=== PATIENT | female | born 1935 ===

== ENCOUNTER 2022-06-05 19:00 | Emergency (ER) | payer MEDICARE, SELFPAY ==
[2022-06-05] VITALS (14 sets, daily range): BP systolic 119–161; BP diastolic 65–90; PULSE 75–88; RESP 15–23; TEMP 36.4; O2SAT 90–98
--- NOTE | 2022-06-05 19:14 | DI.CT.S_ITS ---
PROCEDURE: CT HEAD/BRAIN WO CON INDICATIONS: fall TECHNIQUE: Noncontrast 4.5 mm thick angled axial sections acquired from the foramen magnum to the vertex, with coronal and sagittal reformats. For radiation dose reduction, the following was used: automated exposure control, adjustment of mA and/or kV according to patient size. COMPARISON: [facility], CT, CT CERVICAL SPINE WO CON, 06/05/2022, 19:19. FINDINGS: Image quality: Excellent. CSF spaces: Basal cisterns are patent. No extra-axial fluid collections. The ventricles are symmetric in size and shape. Brain: No intracranial bleeds or masses. There is cerebral volume loss for age, with resultant ventricular and sulcal prominence. There are periventricular and deep white matter chronic small vessel ischemic changes. There is intracranial internal carotid artery atherosclerosis. Skull and face: Calvarium and visualized facial bones appear intact, without suspicious lesions. Sinuses: Visualized sinuses and mastoids are clear. IMPRESSION: 1. No acute intracranial process. 2. Moderate atrophy and chronic microvascular ischemic changes. Dictated by: Bryanna Freire M.D. on 06/05/2022 at 19:40 Approved by: Bryanna Freire M.D. on 06/05/2022 at 19:40
--- NOTE | 2022-06-05 19:14 | DI.CT.S_ITS ---
PROCEDURE: CT CERVICAL SPINE WO CON INDICATIONS: fall TECHNIQUE: Noncontrast 3 mm thick sections acquired from the skull base to the T4 level. Sagittal and coronal reformats were then constructed. For radiation dose reduction, the following was used: automated exposure control, adjustment of mA and/or kV according to patient size. COMPARISON: [facility], CT, CT HEAD/BRAIN WO CON, 06/05/2022, 19:19. FINDINGS: Image quality: Excellent. Bones: No fractures or dislocations. Visualized superior ribs are intact. Multilevel degenerative changes are present. Soft tissues: Prevertebral soft tissues are normal in thickness. No paravertebral hematomas. No apical pneumothoraces. IMPRESSION: Multilevel degenerative changes without visualized fracture. Dictated by: Bryanna Freire M.D. on 06/05/2022 at 19:51 Approved by: Bryanna Freire M.D. on 06/05/2022 at 19:52
--- NOTE | 2022-06-05 19:14 | DI.RAD.S_ITS ---
PROCEDURE: XR CHEST 1V INDICATIONS: fall TECHNIQUE: One view of the chest was acquired. COMPARISON: None. FINDINGS: Surgical changes and devices: None. Lungs and pleura: Lungs are clear. No pleural effusions or pneumothorax. Mediastinum: Mediastinal contours appear normal. Heart size is mildly enlarged. Bones and chest wall: No suspicious bony lesions. Overlying soft tissues appear unremarkable. IMPRESSION: No acute pulmonary process. Dictated by: Bryanna Freire M.D. on 06/05/2022 at 19:59 Approved by: Bryanna Freire M.D. on 06/05/2022 at 19:59
--- NOTE | 2022-06-05 19:22 | DI.RAD.S_ITS ---
PROCEDURE: XR HUMERUS LT 2V INDICATIONS: fall TECHNIQUE: 2 views of the humerus were acquired. COMPARISON: None. FINDINGS: Bones: No fractures or dislocations. No suspicious bony lesions. Soft tissues: No suspicious soft tissue calcifications. IMPRESSION: No trauma found. 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 Dictated by: David Albert M.D. on 06/05/2022 at 20:03 Approved by: David Alebrt M.D. on 06/05/2022 at 20:04
--- NOTE | 2022-06-05 19:22 | DI.RAD.S_ITS ---
PROCEDURE: XR ELBOW LT MIN 3V INDICATIONS: fall TECHNIQUE: 3 views of the elbow were acquired. COMPARISON: [facility], CR, XR HUMERUS LT 2V, 06/05/2022, 19:22. FINDINGS: Bones: No definite fractures or dislocations. No suspicious bony lesions. There is slight irregularity at the ulnar base of radial head, seen on one view only. Soft tissues: Small elbow joint effusion. No suspicious soft tissue calcifications. IMPRESSION: Slight anterior joint effusion, slight irregularity at the ulna are border of the radial head base, conceivably a manifestation of a nondisplaced radial head fracture. Depending on the clinical status follow-up by delayed plain films may be warranted. Dictated by: David Albert M.D. on 06/05/2022 at 20:04 Approved by: David Albert M.D. on 06/05/2022 at 20:06
[2022-06-05 19:37] LABS: INR 1.2 (0.9-1.3); Prothrombin Time 13.6 SECONDS (10.1-12.7)
[2022-06-05 19:38] LABS: Add Manual Diff / Slide Review NO; Basophils Absolute Auto 0 /uL (0-100); Basophils Percent Auto 0.3 % (0-2); Eosinophils Absolute Auto 100 /uL (0-450); Hemoglobin 12.4 g/dL (12.0-16.0); Lymphocytes Absolute Auto 1200 /uL (1100-4500); Lymphocytes Percent Auto 12.3 % (25-40); Mean Corpuscular HGB Conc 32.6 % (30-36); Mean Corpuscular Hemoglobin 31.1 PG (26-34); Mean Corpuscular Volume 95.4 fL (80-100); Monocytes Absolute Auto 800 /uL (0-900); Monocytes Percent Auto 8.5 % (3-14); Neutrophils Absolute Auto 7500 /uL (1500-7000); Neutrophils Percent Auto 77.9 % (50-75); Platelet Count 286 X10^3/uL (150-400); Red Blood Cell Count 3.98 X10^6/uL (4.0-5.2); White Blood Cell Count 9.6 X10^3/uL (4.5-11.0)
[2022-06-05 19:39] LABS: PTT Partial Thromboplastin Tim 29 SECONDS (26-36)
[2022-06-05 19:41] LABS: Alanine Aminotransferase 20 IU/L (<35); Albumin 4.1 g/dL (3.5-5.0); Albumin Globulin Ratio 1.2 (1.0-2.8); Alkaline Phosphatase 147 U/L (38-126); Aspartate Aminotransferase 20 IU/L (14-36); BUN Creatinine Ratio 18.3 (6-22); Bilirubin Total 0.7 mg/dL (0.2-1.3); Blood Urea Nitrogen 17 mg/dL (7-17); Calcium 9.3 mg/dL (8.4-10.2); Carbon Dioxide 27 mmol/L (22-32); Chloride 104 mmol/L (98-107); Creatine Kinase 37 U/L (30-135); Estimated Glomerular Filt Rate 59 mL/min (>60); Globulin 3.5 g/dL (1.7-4.1); Glucose 136 mg/dL (80-110); HEMOLYSIS < 15 (0-50); Lipase 106 U/L (23-300); Potassium 3.9 mmol/L (3.4-5.1); Sodium 139 mmol/L (137-145); Total Protein 7.6 g/dL (6.3-8.2)
--- NOTE | 2022-06-05 19:48 | ED_ITS ---
HPI - Fall General Chief Complaint: Fall Stated Complaint: glf Time Seen by Provider: 06/05/22 19:04 Source: EMS Mode of arrival: EMS History of Present Illness HPI Narrative: Patient is a 87-year-old female with some mild dementia history of hypertension along atrial fibrillation not on anticoagulation or rate control presenting today after a ground level fall. She had her son are visiting here from [place], presenting today after she tripped and fell. She was getting up to get echo when she stubbed her right toe. No head injury or loss of consciousness. Is complaining of some left arm pain. Was previously doing well. She is noted to be in AFib with a rate control all. She denies any hip pain chest pain abdominal pain nausea or vomiting. Related Data Allergies Allergy/AdvReac Type Severity Reaction Status Date / Time Penicillins Allergy Verified 06/05/22 19:36 Review of Systems Review of Systems Narrative: GENERAL: Denies chills, fatigue, malaise, fever, sweats, travel HEENT: Denies sinus pain, ear pain, sore throat, difficulty swallowing, neck pain RESPIRATORY: Denies dyspnea, cough, wheezing, hemoptysis, sputum. CARDIOVASCULAR: Denies chest pain, palpitations, orthopnea, edema GASTROINTESTINAL: Denies nausea, vomiting, abdominal pain, diarrhea, cons tipation, melena. : Denies dysuria, frequency, incontinence, hematuria, urinary retention, flank pain. MUSCULOSKELETAL: See HPI SKIN: No rash, no erythema, no pruritus NEUROLOGIC: Denies weakness, dizziness, headache, numbness, change in speech, confusion PSYCHIATRIC: No concerning psychosocial issues. 12 point review of systems is negative except for those stated above and HPI Patient History Social History Smoking Status: Former smoker Smoking Status: Former smoker tobacco type: cigarettes alcohol intake frequency: holidays/special occasions only Exam Initial Vital Signs Initial Vital Signs: Vital Signs Pulse Rate 86 06/05/22 19:07 Respiratory Rate 17 06/05/22 19:07 Pulse Oximetry 94 06/05/22 19:07 GENERAL: Alert pleasant mildly confused 87 year old female HEENT: Head atraumatic,EOMI, pupils reactive, face symmetric, moist mucous membranes CARDIOVASCULAR: Regular rate and rhythm without murmurs, rubs or gallops. RESPIRATORY: Breath sounds equal bilaterally, no wheezes rales or rhonchi. ABDOMEN: Soft, nontender. Normoactive bowel sounds all 4 quadrants. No guarding or rebound. EXTREMITIES: Normal range of motion, no clubbing or edema. Neurovascularly intact Left arm in cardboard splint peripheral pulses intact no gross bony deformity no step-off no acute shoulder abnormality NEUROLOGICAL: Alert and oriented x4.Normal gait and speech. Cafeteria Aide strength equal bilaterally SKIN: Warm, dry, no laceration, no petechiae, no rashes or lesions. Course Orders Ordered: ED Orders 06/05/22 20:36 Covid-19 + FLU A/B + RSV - PCR Stat Discontinued Medications Acetaminophen (Acetaminophen 325 Mg Tablet) 975 mg PO NOW ONE Stop: 06/05/22 21:40 Last Admin: 06/05/22 22:06 Dose: 975 mg Documented By: RYAN Vital Signs Vital signs: Vital Signs - 8 hr 06/05/22 21:15 06/05/22 21:15 06/05/22 21:30 Pulse Rate 84 Respiratory Rate 21 Blood Pressure 159/90 H 138/81 Pulse Oximetry 98 Oxygen Delivery Method Room Air 06/05/22 21:30 06/05/22 21:45 06/05/22 21:45 Pulse Rate 75 75 Respiratory Rate 19 Blood Pressure 124/76 Pulse Oximetry 98 94 Oxygen Delivery Method Room Air 06/05/22 22:00 06/05/22 22:00 Pulse Rate 80 Respiratory Rate 17 Blood Pressure 134/72 Pulse Oximetry 95 Oxygen Delivery Method Room Air MDM - Fall Lab Data Result diagrams: 06/05/22 19:11 06/05/22 19:11 Labs: Lab Results 06/05/22 06/05/22 06/05/22 Range/Units 19:11 19:11 19:11 WBC 9.6 (4.5-11.0) X10^3/uL RBC 3.98 L (4.0-5.2) X10^6/uL Hgb 12.4 (12.0-16.0) g/dL Hct 38.0 (36-46) % MCV 95.4 (80-100) fL MCH 31.1 (26-34) PG MCHC 32.6 (30-36) % RDW 14.0 (11.6-14.8) % Plt Count 286 (150-400) X10^3/uL Neut % (Auto) 77.9 H (50-75) % Lymph % (Auto) 12.3 L (25-40) % Henderson % (Auto) 8.5 (3-14) % Eos % (Auto) 1.0 L (2-4) % Baso % (Auto) 0.3 (0-2) % Neut # (Auto) 7500 H (8855-6152) /uL Lymph # (Auto) 1200 (6127-1621) /uL Henderson # (Auto) 800 (0-900) /uL Eos # (Auto) 100 (0-450) /uL Baso # (Auto) 0 (0-100) /uL PT (10.1-12.7) SECONDS INR (0.9-1.3) APTT (26-36) SECONDS Sodium 139 (137-145) mmol/L Potassium 3.9 (3.4-5.1) mmol/L Chloride 104 (98-107) mmol/L Carbon Dioxide 27 (22-32) mmol/L BUN 17 (7-17) mg/dL Creatinine 0.93 (0.52-1.04) mg/dL Estimated GFR 59 L (>60) mL/min BUN/Creatinine Ratio 18.3 (6-22) Glucose 136 H (80-110) mg/dL Calcium 9.3 (8.4-10.2) mg/dL Total Bilirubin 0.7 (0.2-1.3) mg/dL AST 20 (14-36) IU/L ALT 20 (<35) IU/L Alkaline Phosphatase 147 H (38-126) U/L Total Creatine Kinase 37 (30-135) U/L CK-MB (CK-2) TNP CK-MB (CK-2) Rel Index TNP Troponin I < 0.012 (0.01-0.034) ng/mL Total Protein 7.6 (6.3-8.2) g/dL Albumin 4.1 (3.5-5.0) g/dL Globulin 3.5 (1.7-4.1) g/dL Albumin/Globulin Ratio 1.2 (1.0-2.8) Lipase 106 (23-300) U/L Procalcitonin 0.06 (<0.5) ng/mL SARS-CoV-2 (PCR) (Negative) Influenza A (RT-PCR) (NEGATIVE) Influenza B (RT-PCR) (NEGATIVE) RSV (PCR) (Negative) 06/05/22 06/05/22 Range/Units 19:11 20:36 WBC (4.5-11.0) X10^3/uL RBC (4.0-5.2) X10^6/uL Hgb (12.0-16.0) g/dL Hct (36-46) % MCV (80-100) fL MCH (26-34) PG MCHC (30-36) % RDW (11.6-14.8) % Plt Count (150-400) X10^3/uL Neut % (Auto) (50-75) % Lymph % (Auto) (25-40) % Henderson % (Auto) (3-14) % Eos % (Auto) (2-4) % Baso % (Auto) (0-2) % Neut # (Auto) (8054-6267) /uL Lymph # (Auto) (2673-8858) /uL Henderson # (Auto) (0-900) /uL Eos # (Auto) (0-450) /uL Baso # (Auto) (0-100) /uL PT 13.6 H (10.1-12.7) SECONDS INR 1.2 (0.9-1.3) APTT 29 (26-36) SECONDS Sodium (137-145) mmol/L Potassium (3.4-5.1) mmol/L Chloride (98-107) mmol/L Carbon Dioxide (22-32) mmol/L BUN (7-17) mg/dL Creatinine (0.52-1.04) mg/dL Estimated GFR (>60) mL/min BUN/Creatinine Ratio (6-22) Glucose (80-110) mg/dL Calcium (8.4-10.2) mg/dL Total Bilirubin (0.2-1.3) mg/dL AST (14-36) IU/L ALT (<35) IU/L Alkaline Phosphatase (38-126) U/L Total Creatine Kinase (30-135) U/L CK-MB (CK-2) CK-MB (CK-2) Rel Index Troponin I (0.01-0.034) ng/mL Total Protein (6.3-8.2) g/dL Albumin (3.5-5.0) g/dL Globulin (1.7-4.1) g/dL Albumin/Globulin Ratio (1.0-2.8) Lipase (23-300) U/L Procalcitonin (<0.5) ng/mL SARS-CoV-2 (PCR) Negative (Negative) Influenza A (RT-PCR) Flu a negative (NEGATIVE) Influenza B (RT-PCR) Flu b negative (NEGATIVE) RSV (PCR) Negative (Negative) Imaging Data CT scan - head: Radiologist's Impression: CT Scan Report Signed Patient: Suzanne Raman MR#: [id number] : 1935 Acct:[id number] Age/Sex: 87 / F Date of Service: 06/05/22 Loc: ED Accession Number: [id number] ?? Procedure: CT head/brain wo con Ordering Provider: Stephanie Loyola D.O. PROCEDURE:? CT HEAD/BRAIN WO CON ? INDICATIONS:? fall ? TECHNIQUE:? Noncontrast 4.5 mm thick angled axial sections acquired from the foramen magnum to the vertex, with coronal and sagittal reformats.? For radiation dose reduction, the following was used:? automated exposure control, adjustment of mA and/or kV according to patient size.? ? COMPARISON:? [facility], CT, CT CERVICAL SPINE WO CON, 06/05/2022, 19:19. ? FINDINGS:? Image quality:? Excellent.? ? CSF spaces:? Basal cisterns are patent.? No extra-axial fluid collections.? The ventricles are symmetric in size and shape.? ? Brain:? No intracranial bleeds or masses.? There is cerebral volume loss for age, with resultant ventricular and sulcal prominence.? There are periventricular and deep white matter chronic small vessel ischemic changes.? There is intracranial internal carotid artery atherosclerosis.? ? Skull and face:? Calvarium and visualized facial bones appear intact, without melchor spicious lesions.? ? Sinuses:? Visualized sinuses and mastoids are clear.? ? IMPRESSION:? ? 1. No acute intracranial process. ? 2. Moderate atrophy and chronic microvascular ischemic changes. ? ? ? Dictated by: Bryanna Freire M.D. on 06/05/2022 at 19:40 ? ? CT - cervical spine: Radiologist's Impression: CT Scan Report Signed Patient: Suzanne Raman MR#: [id number] : 1935 Acct:[id number] Age/Sex: 87 / F Date of Service: 06/05/22 Loc: ED Accession Number: [id number] ?? Procedure: CT cervical spine wo con Ordering Provider: Stephanie Loyola D.O. PROCEDURE:? CT CERVICAL SPINE WO CON ? INDICATIONS:? fall ? TECHNIQUE:? Noncontrast 3 mm thick sections acquired from the skull base to the T4 level.? Sagittal and coronal reformats were then constructed.? For radiation dose reduction, the following was used:? automated exposure control, adjustment of mA and/or kV according to patient size.? ? COMPARISON:? [facility], CT, CT HEAD/BRAIN WO CON, 06/05/2022, 19:19. ? FINDINGS:? Image quality:? Excellent.? ? Bones:? No fractures or dislocations.? Visualized superior ribs are intact.? Multilevel degenerative changes are present.? ? Soft tissues:? Prevertebral soft tissues are normal in thickness.? No paravertebral hematomas.? No apical pneumothoraces.? ? ? IMPRESSION:? Multilevel degenerative changes without visualized fracture. ? Dictated by: Bryanna Freire M.D. on 06/05/2022 at 19:51 ? ? Extremity x-ray #1: Radiologist's Impression: Signed Patient: Suzanne Raman MR#: [id number] : 1935 Acct:[id number] Age/Sex: 87 / F Date of Service: 06/05/22 Loc: ED Accession Number: [id number] ?? Procedure: XR humerus LT 2V Ordering Provider: Stephanie Loyola D.O. PROCEDURE:? XR HUMERUS LT 2V ? INDICATIONS:? fall ? TECHNIQUE:? 2 views of the humerus were acquired.? ? COMPARISON:? None. ? FINDINGS:? ? Bones:? No fractures or dislocations.? No suspicious bony lesions.? ? Soft tissues:? No suspicious soft tissue calcifications.? ? IMPRESSION:? No trauma found.? 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 ? ? Dictated by: David Albert M.D. on 06/05/2022 at 20:03 ? ? Extremity x-ray #2: Radiologist's Impression: Suzanne Raman MR#: [id number] : 1935 Acct:[id number] Age/Sex: 87 / F Date of Service: 06/05/22 Loc: ED Accession Number: [id number] ?? Procedure: XR elbow LT min 3V Ordering Provider: Stephanie Loyola D.O. PROCEDURE:? XR ELBOW LT MIN 3V ? INDICATIONS:? fall ? TECHNIQUE:? 3 views of the elbow were acquired.? ? COMPARISON:? [facility], CR, XR HUMERUS LT 2V, 06/05/2022, 19:22. ? FINDINGS:? ? Bones:? No definite fractures or dislocations.? No suspicious bony lesions.? There is slight irregularity at the ulnar base of radial head, seen on one view only. ? Soft tissues:? Small elbow joint effusion.? No suspicious soft tissue calcifications.? ? ? IMPRESSION:? Slight anterior joint effusion, slight irregularity at the ulna are border of the radial head base, conceivably a manifestation of a nondisplaced radial head fracture.? Depending on the clinical status follow-up by delayed plain films may be warranted. ? ? Dictated by: David Albert M.D. on 06/05/2022 at 20:04 ? ? Approved by: David Albert M.D. on 06/05/2022 at 20:06 ? Chest x-ray: Radiologist's Impression: Signed Patient: Suzanne Raman MR#: [id number] : 1935 Acct:[id number] Age/Sex: 87 / F Date of Service: 06/05/22 Loc: ED Accession Number: [id number] ?? Procedure: XR chest 1V Ordering Provider: Stephanie Loyola D.O. PROCEDURE:? XR CHEST 1V ? INDICATIONS:? fall ? TECHNIQUE:? One view of the chest was acquired.? ? COMPARISON:? None. ? FINDINGS:? ? Surgical changes and devices:? None.? ? Lungs and pleura:? Lungs are clear.? No pleural effusions or pneumothorax.? ? Mediastinum:? Mediastinal contours appear normal.? Heart size is mildly enlarged. ? Bones and chest wall:? No suspicious bony lesions.? Overlying soft tissues appear unremarkable.? ? IMPRESSION:? No acute pulmonary process. ? ? Dictated by: Bryanna Freire M.D. on 06/05/2022 at 19:59 ? ? ECG Data Interpretation: Atrial fibrillation rate [address] changes priors to compare MDM Narrative Medical decision making narrative: Son at bedside more reliable historian says they are visiting. She has had AFib ongoing since at least 2020 not on any anticoagulation. Left toe has a mild bruise but moving it we all agree no x-ray at this time. Left elbow x-ray does suggest possible radial head fracture she can flex extend supinate and pronate with minimal pain she has mild pain in her distal humerus which is not fractured. She is placed in a sling for comfort recommend outpatient repeat x- ray in 7-10 days. Tylenol as needed Discharge Plan Departure Patient Disposition: Home Clinical Impression: Arm pain, left, Atrial fibrillation Activity Restrictions/Additional Instructions: *You have been diagnosed with left arm pain, atrial fibrillation *What to do: This time keep arm in sling as needed for pain control. Take arm out shoulder around. I do recommend repeating x-rays in 7-10 days with her primary care provider. Atrial fibrillation does put got risk for stroke. Aspirin 81 mg daily is likely a not off to help prevent this. Discussed with her PCP. *Continue to take medications as directed Tylenol 650 mg every 4-6 hours if needed from a Aspirin 81 mg daily *Follow up with your primary care provider in 2-3 days or call [phone] *Return to ER if you should have increasing pain confusion, or any new, worsening or concerning symptoms Visit Report Forms: Patient Portal/API
[2022-06-05 19:52] LABS: Troponin I < 0.012 ng/mL (0.01-0.034)
[2022-06-05 19:58] LABS: Procalcitonin 0.06 ng/mL (<0.5)
[2022-06-05 21:36] LABS: Influenza A - CEPHEID Flu A NEGATIVE (NEGATIVE); Influenza B - CEPHEID Flu B NEGATIVE (NEGATIVE); Respiratory Syncytial Virus Negative (Negative)
[2022-06-05 21:43] LABS: COVID-19 CEPHEID 4-PLEX PCR Negative (Negative)
[2022-06-05] MEDS: ACETAMINOPHEN 325 MG TABLET 975 MG PO (22:06)
== END 2022-06-05 22:30 | disposition home or self-care (01) ==
PROVIDERS: Emergency Provider Emergency Medicine
DX: M79.602 Pain in left arm (principal); I48.91 Unspecified atrial fibrillation; S09.90XA Unspecified injury of head, initial encounter; W18.30XA Fall on same level, unspecified, initial encounter; Z20.822 Contact with and (suspected) exposure to COVID-19
CPT/HCPCS: 0241U; 36415; 70450; 71045; 72125; 73060; 73080; 80053; 82550; 83690; 84145; 84484; 85025; 85610; 85730; 93005; 93010; 99284